=== PATIENT | male | born 1995 | race Caucasian/White ===

== ENCOUNTER 2016-07-22 19:03 | Emergency (ER) | payer SELFPAY ==
[~2016-07-22] VITALS: Ht 177.8 cm; Wt 81.6 kg
[~2016-07-22 19:03] MED LIST: IBUP-1007 PO
[2016-07-22 20:16] VITALS: BP 127/65
[2016-07-22 20:29] LABS: BASO % 1 % (0-3); EOS % 5 % (0-3); HEMATOCRIT 44.7 % (39.0-53.0); HEMOGLOBIN 14.8 g/dL (13.0-17.5); LYMPH # 1.7 x10^3/uL (1.0-4.8); LYMPH % 25 % (24-48); MEAN CORPUSCULAR HEMOGLOBIN 29 pg (25-35); MEAN CORPUSCULAR HGB CONC 33 g/dL (31-37); MEAN CORPUSCULAR VOLUME 88 fL (79-100); MONO % 8 % (0-9); NEUT % 62 % (31-73); PLATELET COUNT 217 x10^3/uL (140-400); RED BLOOD COUNT 5.07 x10^6/uL (4.30-5.70); WHITE BLOOD COUNT 6.7 x10^3/uL (4.0-11.0)
[2016-07-22 20:39] LABS: CALCIUM 9.4 mg/dL (8.5-10.1); CREATININE 1.1 mg/dL (0.7-1.3); GFR 83.7; POTASSIUM 4.5 mmol/L (3.5-5.1)
[2016-07-22 20:48] LABS: ALBUMIN 4.1 g/dL (3.4-5.0); DIRECT BILIRUBIN 0.1 mg/dL (0.0-0.2); TOTAL BILIRUBIN 0.3 mg/dL (0.2-1.0); TOTAL PROTEIN 7.7 g/dL (6.4-8.2)
--- NOTE | 2016-07-22 21:14 | RAD ---
PROCEDURE Right upper quadrant abdomen ultrasound study HISTORY Right upper quadrant pain. Patient last ate at 4:30 p.m.. FINDINGS The pancreas is poorly visualized due to overlying bowel gas. The liver is homogeneous without mass. The liver measures 14.5 centimeters in length. The gallbladder is small and contracted. No obvious gallstone is evident otherwise. The extrahepatic bile duct measures 3.7 millimeters in caliber which is normal. The length of the right kidney is 11.4 centimeter. No hydronephrosis or renal mass or perinephric fluid collection is seen on this side. IMPRESSION The gallbladder is small contracted due to recent meal. No biliary ductal dilatation is seen. The pancreas is poorly visualized due to overlying bowel gas. Electronically signed by: Zi Hernandez MD (Jul 22, 2016 21:13:45)
[2016-07-22] MEDS ORDERED: FAMO-63 PO (21:48)
--- NOTE | 2016-07-22 21:48 | PHYS DOC ---
Past Medical History Past Medical History: Other Additional Past Medical Histor: METHAMPHETAMINE ADDICTION Past Surgical History: Other Additional Past Surgical Histo: LEFT KNEE ACL REPAIR, right knee Alcohol Use: Occasionally Drug Use: Marijuana, Methamphetamine, Other Social History Narrative: states he has been sober from drugs and alcohol for 4 months Adult General Chief Complaint Chief Complaint: RECTAL BLEED HPI HPI This 21-year-old male presents with mild right upper quadrant pain and epigastric pain that he states is worse with meals and is radiate into his back. He states the pain became severe today after he ate breakfast. He denies any nausea or vomiting. He denies any fever with his symptoms. He denies any history of significant health problems. He denies any chest pain or shortness of breath. He states he has had mild rectal pain with bowel movements and does admit to constipation. Pt is declining a rectal exam. Review of Systems Review of Systems Constitutional: Denies fever or chills [] Eyes: Denies change in visual acuity, redness, or eye pain [] HENT: Denies nasal congestion or sore throat [] Respiratory: Denies cough or shortness of breath [] Cardiovascular: No additional information not addressed in HPI [] GI: Has abdominal pain, denies nausea, denies vomiting, bloody stools or diarrhea [] : Denies dysuria or hematuria [] Musculoskeletal: Denies back pain or joint pain [] Integument: Denies rash or skin lesions [] Neurologic: Denies headache, focal weakness or sensory changes [] Endocrine: Denies polyuria or polydipsia [] Current Medications Current Medications Current Medications Medications (Trade) Dose Ordered Sig/[facility] Start Time Stop Time Status Last Admin Dose Admin Multi-Ingredient Mouthwash/Gargle (Gi Cocktail Single Dose) 15 ml 1X ONCE 07/22/16 22:00 07/22/16 22:01 DC 07/22/16 22:01 15 ML Allergies Allergies Allergies Coded Allergies Type Severity Reaction Last Updated Verified No Known Drug Allergies 05/26/16 No Physical Exam Physical Exam Constitutional: Well developed, well nourished, no acute distress, non-toxic appearance. [] HENT: Normocephalic, atraumatic, bilateral external ears normal, oropharynx moist, no oral exudates, nose normal. [] Eyes: PERRLA, EOMI, conjunctiva normal, no discharge. [] Neck: Normal range of motion, no tenderness, supple, no stridor. [] Cardiovascular:Heart rate regular rhythm, no murmur [] Lungs & Thorax: Bilateral breath sounds clear to auscultation [] Abdomen: Bowel sounds normal, soft, RUQ and epigastric tenderness, no masses, no pulsatile masses. [] Skin: Warm, dry, no erythema, no rash. [] Back: No tenderness, no CVA tenderness. [] Extremities: No tenderness, no cyanosis, no clubbing, ROM intact, no edema. [] Neurologic: Alert and oriented X 3, normal motor function, normal sensory function, no focal deficits noted. [] Psychologic: Affect normal, judgement normal, mood normal. [] Current Patient Data Vital Signs Vital Signs Date Time Temp Pulse Resp B/P Pulse Ox O2 Delivery O2 Flow Rate FiO2 07/22/16 20:16 80 20 127/65 98 Room Air 07/22/16 19:41 98.4 98.4 Lab Values Laboratory Tests Test 07/22/16 20:10 White Blood Count 6.7x10^3/uL (4.0-11.0) Red Blood Count 5.07x10^6/uL (4.30-5.70) Hemoglobin 14.8g/dL (13.0-17.5) Hematocrit 44.7% (39.0-53.0) Mean Corpuscular Volume 88fL (79-100) Mean Corpuscular Hemoglobin 29pg (25-35) Mean Corpuscular Hemoglobin Concent 33g/dL (31-37) Red Cell Distribution Width 14.0% (11.5-14.5) Platelet Count 217x10^3/uL (140-400) Neutrophils (%) (Auto) 62% (31-73) Lymphocytes (%) (Auto) 25% (24-48) Monocytes (%) (Auto) 8% (0-9) Eosinophils (%) (Auto) 5% (0-3) H Basophils (%) (Auto) 1% (0-3) Neutrophils # (Auto) 4.1x10^3uL (1.8-7.7) Lymphocytes # (Auto) 1.7x10^3/uL (1.0-4.8) Monocytes # (Auto) 0.5x10^3/uL (0.0-1.1) Eosinophils # (Auto) 0.3x10^3/uL (0.0-0.7) Basophils # (Auto) 0.0x10^3/uL (0.0-0.2) Sodium Level 143mmol/L (136-145) Potassium Level 4.5mmol/L (3.5-5.1) Chloride Level 105mmol/L (98-107) Carbon Dioxide Level 29mmol/L (21-32) Anion Gap 9 (6-14) Blood Urea Nitrogen 14mg/dL (8-26) Creatinine 1.1mg/dL (0.7-1.3) Estimated GFR (Cockcroft-Gault) 83.7 Glucose Level 97mg/dL (70-99) Calcium Level 9.4mg/dL (8.5-10.1) Total Bilirubin 0.3mg/dL (0.2-1.0) Direct Bilirubin 0.1mg/dL (0.0-0.2) Aspartate Amino Transferase (AST) 42U/L (15-37) H Alanine Aminotransferase (ALT) 155U/L (16-63) H Alkaline Phosphatase 108U/L (46-116) Total Protein 7.7g/dL (6.4-8.2) Albumin 4.1g/dL (3.4-5.0) Lipase 234U/L (73-393) Laboratory Tests 07/22/16 20:10 Laboratory Tests 07/22/16 20:10 EKG EKG EKG as interpreted by me shows a sinus rhythm with a rate of 85 bpm. This is a normal EKG. There are no acute ST findings. Radiology/Procedures Radiology/Procedures Ultrasound report of the abdomen: The gallbladder is small contracted due to recent meal. No biliary ductal dilatation is seen. The pancreas is poorly visualized due to overlying bowel gas. Course & Med Decision Making Course & Med Decision Making Pertinent Labs and Imaging studies reviewed. (See chart for details) This 21 male had a negative gallbladder ultrasound as well as blood work that showed some mild liver function abnormalities. I counseled the patient at length that his symptoms still could be gallbladder related and that if he has persisting pain he is to follow-up with his primary care doctor to obtain further testing or endoscopy. I also wrote the patient for Pepcid at home. Patient is very agreeable with this plan and discharged without incident. Kaz Disclaimer Dragon Disclaimer This electronic medical record was generated, in whole or in part, using a voice recognition dictation system. Departure Departure Impression: Primary Impression: Abdominal pain Additional Impression: Liver function abnormality Disposition: HOME, SELF-CARE Condition: STABLE Referrals: NO PCP (PCP) Patient Instructions: Abdominal Pain, Fkmg-od-Ited Additional Instructions: Please follow up with your primary doctor in 2-3 days for your abdominal pain. Return to the ER if you develop any worsening of your symptoms. Scripts Famotidine (Pepcid)20 Mg Tedvhp45 Mg PO HS #10 TAB Prov:MARGOT LEE DO 07/22/16 Problem Qualifiers MARGOT LEE DO Jul 22, 2016 21:48
[2016-07-22] MEDS ORDERED: LIDO:MAALOX:DONNATAL 1:1:1 15 ML SINGLE DOSE SWSW ONE (22:00)
--- NOTE | 2016-07-23 06:43 | EKG ---
[facility] [address] [place] [address] Test Date: 2016-07-22 Test Time: 19:44:42 Pat Name: JAYSHREE JOSEPH Department: Room: Gender: M Hotel Reservationist: : 1995 Requested By: MARGOT LEE Order Number: [id number] Reading MD: Amira Mcgregor Measurements Intervals Slemp Rate: 85 P: 42 [place]: 164 QRS: 69 QRSD: 96 T: 46 QT: 346 QTc: 417 Interpretive Statements SINUS RHYTHM NORMAL ECG RI6.01 No previous ECG available for comparison Electronically Signed On 07-24-2016 0:25:48 [employer] by Amira Mcgregor
== END 2016-07-22 22:02 | disposition home or self-care (01) ==
LOC: ER 19:03
DX: R10.11 Right upper quadrant pain (principal); R94.5 Abnormal results of liver function studies; K62.5 Hemorrhage of anus and rectum; F12.10 Cannabis abuse, uncomplicated; F15.10 Other stimulant abuse, uncomplicated
CPT/HCPCS: 36415; 76705; 80048; 80076; 83690; 85027; 93005; 99285-25